=== PATIENT | female | born 1960 | race Caucasian/White ===

== ENCOUNTER 2018-10-18 05:18 | Day surgery (SDC) ==
[2018-10-13 10:31] LABS: BASO# 0.08 X1000 (0.0-0.2); BASO% 1.1 % (0.0-0.8); EOS% 2.8 % (0.0-10.0); HEMATOCRIT 39.4 % (37.0-47.0); HEMOGLOBIN 13.1 g/dL (12.0-16.0); IMM GRAN# 0.02 X1000 (0.0-0.04); IMM GRAN% 0.3 % (0.0-0.5); LYMPH# 2.95 X1000 (1.2-3.4); LYMPH% 41.4 % (20.5-51.1); MCHC 33.2 g/dL (33-37); MCV 90.2 FL (81-99); MONO# 0.39 X1000 (0.11-0.59); MONO% 5.5 % (1.7-9.3); MPV 10.2 FL (7.4-10.4); NEUT# 3.49 X1000 (1.4-6.5); NEUT% 48.9 % (42.2-75.2); PLT 253 X1000 (130-400); RBC 4.37 XMIL (4.2-5.4); RDW 13.3 % (11.5-14.5); WBC 7.13 X1000 (4.8-10.8)
[2018-10-13 10:48] LABS: AGAP 10; BUN 11 mg/dL (8-22); CALCIUM 9.4 mg/dL (8.8-10.2); CHLORIDE 104 mmol/L (98-107); COSMO 280; CREATININE 0.7 mg/dL (0.5-0.9); ESTIMATED GFR > 60; GLUCOSE 114 mg/dL (70-104); POTASSIUM 4.1 mmol/L (3.5-5.1); SODIUM 140 mmol/L (136-145); TCO2 26 mmol/L (25-35)
--- NOTE | 2018-10-17 17:57 | HISTORY AND PHYSICAL ---
HISTORY: The patient is a 57-year-old female who has been struggling with pelvic organ prolapse. We initially attempted pessary management, and then did a [place] tissue repair vaginally. However, obesity has placed a large weight burden on the apex, and now she has a recurrence in her prior vaginal reconstruction that lasted approximately 6 months. On evaluation, she has stage II prolapse, and is having significant bladder issues with this. 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 We discussed at length, my concerns regarding her obesity and the effects of surgery. We also discussed that the best long-term cure was the sacral colpopexy, and she is understanding and wishing to proceed. She understands that this is going to be a technically difficult procedure because of her obesity, and wishes to proceed. PAST MEDICAL HISTORY: Positive for diabetes. Positive for hypertension. PAST SURGICAL HISTORY: Positive for laparoscopic-assisted vaginal hysterectomy, laparoscopic cholecystectomy, anterior and posterior compartment defect repair. ALLERGIES: Sulfur. CURRENT MEDICATIONS: Losartan 100, metformin 500, pravastatin 40, and p.r.n. medications. SOCIAL HISTORY: Positive for tobacco, 1 to 2 packs per day. FAMILY HISTORY: Noncontributory. PHYSICAL EXAMINATION: GENERAL: BMI is 38. HEENT: Normocephalic, atraumatic. PERRLA. EOMI. No thyromegaly. CARDIOVASCULAR: Regular rate and rhythm without murmur, gallop, or rub. PULMONARY: Clear to auscultation and percussion. ABDOMEN: Soft. GENITOURINARY: POP 2 stage II prolapse with most of it being an anterior and apical issue. The posterior compartment is holding well from her prior posterior reconstruction. NEUROLOGIC: Afocal. EXTREMITIES: Without clubbing, cyanosis, or edema. ASSESSMENT AND PLAN: Patient admitted at this time for robotic abdominal sacrocolpopexy and midurethral sling with Obtryx. The risks and benefits were discussed at length. She understands and is wishing to proceed. cc: Yoan Bonner MD
[2018-10-18] MEDS ORDERED: KEFZOL 1 GM/D5W 2 GM/100 ML IVPB ONE (05:51)
[2018-10-18] MEDS ORDERED: LR 1,000 ML ONE ×3 (05:51→10:12)
[2018-10-18] MEDS ORDERED: VERSED ONE (06:09)
[2018-10-18] MEDS ORDERED: XYLOCAINE-MPF 2% ONE (06:09)
[2018-10-18] MEDS ORDERED: SODIUM CHLORIDE 0.9% 10 ML ONE (06:10)
[2018-10-18] MEDS ORDERED: NORCURON ONE (06:10)
[2018-10-18] MEDS ORDERED: FENTANYL ONE (06:10)
[2018-10-18] MEDS ORDERED: DIPRIVAN 1% ONE (06:10)
[2018-10-18] MEDS ORDERED: QUELICIN (DOSE) ONE (06:10)
[2018-10-18] MEDS ORDERED: DECADRON ONE (06:13)
[2018-10-18] MEDS ORDERED: ZOFRAN ONE (06:13)
[2018-10-18] MEDS ORDERED: SENSORCAINE 0.5%-EPI 1:200,000 ONE (06:37)
[2018-10-18] MEDS ORDERED: D10W 1,000 ML ONE (06:37)
--- NOTE | 2018-10-18 06:47 | H&P REVIEW ---
H&P Update H&P Review: H&P was reviewed and patient was examined, No change has occurred in the patient's condition
[2018-10-18] MEDS ORDERED: TORADOL ONE (07:46)
[2018-10-18] MEDS ORDERED: LASIX ONE (07:46)
[2018-10-18] MEDS ORDERED: NEOSTIGMINE ONE (08:01)
[2018-10-18] MEDS ORDERED: ROBINUL ONE (08:01)
[2018-10-18 08:10] LABS: URINE SOURCE CATH
[2018-10-18 08:12] LABS: BILIRUBIN URINE NEGATIVE (NEGATIVE); BLOOD URINE NEGATIVE (NEGATIVE); COLOR YELLOW; GLUCOSE URINE NEGATIVE (NEGATIVE); KETONE URINE NEGATIVE (NEGATIVE); LEUKOCYTES URINE NEGATIVE (NEGATIVE); NITRITE URINE NEGATIVE (NEGATIVE); PROTEIN URINE TRACE mg/dL (NEGATIVE); TURBIDITY URINE CLEAR (CLEAR); UROBILINOGEN URINE NORMAL (NORMAL)
[2018-10-18 08:13] LABS: UR EPITHELIAL CELLS <10 /HPF (<10); URINE BACTERIA NEGATIVE /HPF; URINE WBC <10 /HPF (<10)
[2018-10-18] MEDS ORDERED: DEMEROL ONE (10:12)
[2018-10-18] MEDS: DILAUDID ONE ×2 (10:41→10:51)
[2018-10-18] MEDS ORDERED: NORCO-5 PO PRN (11:14)
[2018-10-18] MEDS: LR 1,000 ML IV SCH ×3 (12:00→20:00)
--- NOTE | 2018-10-18 13:29 | OPERATIVE NOTE ---
PROCEDURE DATE: 10/18/2018 PREOPERATIVE DIAGNOSIS: Recurrent pelvic organ prolapse. POSTOPERATIVE DIAGNOSIS: Recurrent pelvic organ prolapse. PROCEDURE: Da Gerardo abdominal sacrocolpopexy, mid urethral sling with Obtryx. SURGEON: Dr. Yoan Bonner. LODE MINER BLASTING: Dr. Joanna Damon. ANESTHESIA: General. ESTIMATED BLOOD LOSS: 20 mL. HISTORY: The patient is a 57-year-old obese female, who is having problems with symptomatic pelvic organ prolapse. She actually had undergone a [place] tissue repair in the past and had her anterior apical recurrence. We attempted pessary management; however, she works in a job that requires a lot of lifting and pushing and pulling, and has not responded well. So, she is admitted for surgical intervention. OPERATIVE FINDINGS: The patient is found to have normal pelvis with redundant sigmoid colon. Normal bladder after completion of the procedure with efflux of urine from both ureters. No other abnormalities. OPERATIVE PROCEDURE: Patient taken to the operating room, placed in supine position after adequate general anesthesia obtained. She is placed in the [facility]. Her abdomen and vagina were prepped and draped in the usual fashion. A supraumbilical incision was made and a 12 mm port and sheath were introduced through this incision into the abdominal cavity. Pelvic contents were visualized. Therefore, insufflation with CO2 and intra-abdominal pressure of 14 was performed. The left-sided ports were placed under direct visualization after infiltration with the same local anesthetic, and then the right ports were placed in a similar fashion as well. The patient was placed in deep Trendelenburg position and EEA sizers were placed within the vagina and the rectum and Vazquez catheter was placed. The robot was docked in the usual fashion. Hot scissors in the right hand, PK was in arm 2 and a Cardiere grasper was in arm 3. We initially started with our dissection in the vesicovaginal plane. The EEA sizer was utilized to elevate the vagina. She had a very redundant bladder with the bladder drooping well over the apex of the vagina, actually towards the posterior wall. We actually began our vesicovaginal dissection approximately 2 cm caudal from the apex on the rectal side. Starting with this dissection, we actually came around the apex of vagina and then were able to get in the vesicovaginal space even better. We dissected down approximately 5 cm anteriorly. Because of the redundancy of the bladder, we had difficulty getting any lower with our anterior dissection. We then turned our attention towards the posterior compartment. We developed this space as well. We had approximately 8 cm dissected down to the perineal body. We went up to the promontory. We struggled at this area because of the obesity and redundancy of the colon; however, we were able to identify the promontory. We elevated the peritoneum off of this, incised it and cleared out approximately 2 cm of presacral fat. The middle sacral vein was right in our operative site, so we cauterized this at multiple sites. We then placed 2 sutures of Rector-Felipe through the anterior longitudinal ligament and left these intra-abdominally at that site because we had good visualization. We then created our tunnel paying attention to the ureter that was involved on the right-hand side. We got the tunnel down all the way to our prior dissection. The mesh was trimmed at this time in the usual fashion for the measurements of our dissection. It was then placed intra-abdominally, and we used 2 large needle drivers to begin with our mesh placement. Starting in the anterior compartment, we placed approximately 12 sutures anteriorly. All sutures were thrown with the 0 Rector-Felipe suture, using an initial surgeon's throw and 4 half throws after this. The posterior arm was then brought in the rectovaginal space, and we placed approximately 10 sutures in that area, again using the same knot arrangement. The third arm was brought up to the promontory. The 2 sutures had already been placed or fed through the mesh from the posterior to the anterior position. Using the EEA Sizer, we were able to elevate the vagina and cuff up to that area for placement of these sutures. We tied them down and then excised the excessive mesh on the third arm. At this time, we turned our attention towards peritonealization using a V-LOC suture. We began at the promontory and re-peritonealized, having total coverage of the mesh throughout down to the bifurcation of the mesh. We then pursestring sutured starting anteriorly and then coming up posteriorly to ensure that we had no space in the retroperitoneal region. Upon doing this, copious amounts of irrigation was performed. We dropped our pressures down to 3. Hemostasis was observed at all sites. All equipment was removed under direct visualization. The robot was undocked. We placed the patient in a little bit more of a supine position and used a Cuco-Thomasen to close the fascia of both the umbilical port and the assistance port in the right upper quadrant. Upon doing this, abdomen was deflated of all CO2. As the other ports were removed, nursing services closed all skin incisions with 4.0 Vicryl ligature in a subcuticular fashion and surgical glue. Vaginally, we had excellent support in the anterior apical and posterior compartments, so we turned our attention towards placement of the sling. The urethra was grasped proximally and distally, and approximately 8 mL of 0.25% Marcaine with epinephrine were injected for hydrodissection towards the ischial pubic ramus. A sagittal incision was made. Metzenbaum scissors were utilized to dissect up towards the obturator canal on both sides. Starting on the left-hand side, the halo device was introduced through a stab incision going through the obturator canal into the multiplex operator's finger, which directed it out. The mesh was attached to it and it was retracted back through the skin. This was performed on the contralateral side in a similar fashion. Vazquez catheter had already been removed. Cystoscope was introduced and the bladder was filled with D 10. Both ureters were noted to be effluxing urine. There was no evidence of any mesh or abnormalities within the bladder. Cystoscope was removed. A Brynn clamp was placed in the mid urethral position. The tape was brought out the Brynn clamp. Blue tag was excised. The sheaths were easily removed. There was no tension on the mesh whatsoever at this point, and the mid urethral incision was closed with a running locking 2.0 Vicryl ligature. Excessive mesh was trimmed on the skin. Rectal examination was performed and found to be within normal limits. The sponge count, instrument count and needle counts correct x3. Packs and drains were Vazquez. Patient was taken out of the low adjustable stirrups, awakened, taken to the recovery room with vital signs stable. cc: Yoan Bonner MD
[2018-10-18] MEDS: TORADOL IV SCH ×2 (15:56→21:22)
--- NOTE | 2018-10-18 18:29 | PROGRESS NOTE ---
DATE: 10/18/2018 TIME: 6:15 p.m. SUBJECTIVE: Patient is alert and oriented x3, and has just finished eating dinner. Her family is with her. OBJECTIVE: Afebrile. Vital signs are stable. ASSESSMENT/PLAN: Routine postoperative care. We will plan on a voiding trial in the morning and discharge home after completion of the voiding trial if she has a good evening. cc: Yoan Bonner MD
[2018-10-18] MEDS ORDERED: PERIDEX MT SCH (21:00)
[2018-10-18] MEDS ORDERED: CRESTOR PO SCH (21:00)
[2018-10-18] MEDS: PERIDEX MT SCH (21:22)
[2018-10-18] MEDS: COLACE PO SCH (21:22)
[2018-10-19] MEDS: TORADOL IV SCH ×3 (03:04→08:44)
[2018-10-19] MEDS: LR 1,000 ML IV SCH (06:17)
--- NOTE | 2018-10-19 07:15 | DISCHARGE SUMMARY ---
ADMISSION DATE: 10/18/2018 DISCHARGE DATE: 10/19/218 PRINCIPAL DIAGNOSIS: Pelvic organ prolapse. PROCEDURE: Da Gerardo abdominal sacrocolpopexy and mid urethral sling with Obtryx. HISTORY: The patient is a 57-year-old female who had had a prior [place] tissue repair, and had a recurrence of her apical and anterior compartment prolapse. She was admitted for surgical intervention. HOSPITAL COURSE: The patient underwent above-stated procedure. Blood loss at that time was approximately 20 mL. Postoperative course has been uncomplicated. She is currently undergoing voiding trial. She will be discharged home with instructions for followup in 3 weeks. DISCHARGE MEDICATIONS: Thompson and Toradol. DIET: She was instructed on regular diet and decreased activity. cc: Yoan Bonner MD
[2018-10-19 08:07] VITALS: BP 116/58
[2018-10-19] MEDS: COLACE PO SCH (08:44)
[2018-10-19] MEDS: PERIDEX MT SCH (08:44)
[2018-10-19] MEDS ORDERED: COZAAR PO SCH (09:00)
[2018-10-19] MEDS ORDERED: COENZYME Q10 PO SCH (09:00)
[2018-10-19] MEDS ORDERED: PATIENT'S OWN MED PO SCH (09:00)
== END 2018-10-19 08:54 | disposition home or self-care (01) ==
LOC: 4N 05:18 → OR 05:18 → 4N 10:46 → OR 10-19 08:54
PROVIDERS: ATTEND Obstetrics & Gynecology